=== PATIENT | female | born 1985 | race Caucasian/White ===

== ENCOUNTER 2019-10-22 15:20 | Emergency (ER) | payer OTHER, SELFPAY ==
[2019-10-22 15:21] VITALS: BP 139/102; PULSE 88; RESP 16; TEMP 36.7; O2SAT 100; BMI 35.3
--- NOTE | 2019-10-22 15:42 | ED.DCSUM_ITS ---
History of Present Illness <Kris Hernadez - Last Filed: 10/22/19 16:11> Informant: Patient - Abdominal Pain/Flank Pain Onset: Yesterday Context: Gradual Onset Timing: Intermittent Quality: Cramping Location: RLQ Current Severity: Moderate Maximum Severity: Severe Worsened by: Nothing Relieved by: Remaining Still - Nausea/Vomiting/Emesis GI Symptom: Negative for: Nausea, Vomiting - Diarrhea/Melena/Hematochezia GI Symptom: Negative for: Diarrhea, Melena, Hematochezia Associated Symptoms: Negative for: Dysuria, Frequency, Hematuria, Urgency LMP: this week Narrative: 34-year-old female presents to the emergency department with right lower quadrant abdominal pain. Patient started having menstrual bleeding yesterday with her period. She has developed intermittent right lower quadrant pain. She states it is cramping and sharp in nature. Nothing makes it better or worse. It radiates to her back. She has had no nausea vomiting or diarrhea or urinary symptoms. No fevers. No vaginal discharge. She has a history of ovarian cyst remotely. She is not on Oral BCP at this time. No history of kidney stones or abdominal surgeries. She is eating and drinking normally. Prior similar symptoms: No Recent Illness/Hospitalization: No <Eldon Denson - Last Filed: 10/22/19 17:03> Chief Complaint: Abd Pain Past Medical History <Kris Hernadez - Last Filed: 10/22/19 16:11> Prior records reviewed: Yes Past Medical History: None Surgical History: no surgical history Lives: With Family Smoking Status: Never smoker <Kristina Densonony - Last Filed: 10/22/19 17:03> - Allergies and Home Meds Allergies/Adverse Reactions: Allergies morphine Allergy (Verified 10/22/19 15:22) Other HALLUCINATIONS Primary Care Physician: Manuel Vickers MD [Primary Care Provider] - Review of Systems All systems negative except as indicated General: Denies: Chills, Fever, Malaise Eyes: Denies: Visual changes - bilaterally, Blurred Vision - bilaterally, Diplopia ENT: Denies: Rhinorrhea, Sore throat Cardiovascular: Denies: Chest pain, Palpitations, Heart racing Respiratory: Denies: Dyspnea, Cough, Sputum Gastrointestinal: Reports: Abdominal pain. Denies: Nausea, Vomiting, Constipation, Melena, Hematochezia Genitourinary: Denies: Dysuria, Hematuria, Frequency Musculoskeletal: Denies: Myalgias, Arthralgias, Neck pain, Back pain Skin: Denies: Rash, Abscess, Abrasions, Wounds Neurological: Denies: Headache, Weakness, Parasthesia, Numbness Endocrine: Denies: Polyuria, Polydipsia <Eldon Denson - Last Filed: 10/22/19 17:03> Physical Exam Vital Signs/Narrative: Vital Signs Temp Pulse Resp BP Pulse Ox 10/22/19 15:21 98.1 F 88 16 139/102 H 100 <SatyaKris - Last Filed: 10/22/19 16:11> Vital Signs/Narrative: Vital Signs Temp Pulse Resp BP Pulse Ox 10/22/19 15:21 98.1 F 88 16 139/102 H 100 Inital Vital Signs reviewed: Yes General: Well nourished, Well developed, No Acute Distress Head: Normocephalic, Atraumatic Eyes: Perrl, EOMI ENT: Moist mucous membranes Neck: Supple, Nontender, No lymphadenopathy, No JVD Cardiovascular: Regular rate, Regular rhythm, No murmurs Respiratory: No distress, CTA bilaterally, Chest nontender Abdomen: Soft, Nondistended, Normal bowel sounds, No masses, Tender. 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 Complaining of 1 to 2-day history of very low right lower quadrant pelvic pain. Denies dysuria. No fever. No vomiting or diarrhea. Is having some vaginal spotting. No prior abdominal surgeries. Young female no acute distress. Vital signs are stable. She is afebrile. She does not look septic or toxic. Lungs are clear. Heart regular rhythm no murmur. Abdomen she is tender but is very low right lower quadrant below her belt line. More in the pelvic region. Below and medial to McBurney's point. No peritoneal signs. Nondistended. Positive bowel sounds. No obvious hernia or mass. Right upper left upper and left lower quadrants are all unremarkable. Back nontender. Differential diagnosis would include ovarian cyst versus UTI versus other etiologies. It is in the differential but I do not think this is clinically an appendicitis. <Kris Hernadez - Last Filed: 10/22/19 16:11> - Medical Decision Making CT abdomen pelvis without contrast shows a normal appendix. Did show some very minimal hydronephrosis on the right side with possible recently passed kidney stone. Repeat exam patient feels improved tolerating by mouth discussed with her this is likely from UTI was prescribed Keflex first dose given in ED and we sent a culture. Return precautions given. She was agreeable with plan of care <Eldon Denson - Last Filed: 10/22/19 17:03> ED Disposition <Kris Hernadez - Last Filed: 10/22/19 16:11> <Eldon Denson - Last Filed: 10/22/19 17:03> - Plan for ED Patient: Disposition: Home or Assisted Living Diagnosis: UTI (urinary tract infection) Instructions: ED CYSTITIS Female Adult Prescriptions: Cephalexin [Keflex] 500 mg PO Q12 #14 cap Prescription Printed Referrals: Manuel Vickers MD [Primary Care Provider] -
[2019-10-22 15:47] LABS: Bacteria 0 SEEN /hpf (None Seen); Mucous, Urine 0 SEEN /hpf (<or=2+)
[2019-10-22 15:52] LABS: Color, Urine Yellow (Yellow); Glucose, Dipstick Normal (Normal); Ketone-Dipstick Negative (Negative); Leukocyte Esterase-Dipstick 500 /ul (Negative); Nitrite-Dipstick Negative (Negative); Occult Blood-Urine 250 /ul (Negative); Protein-Dipstick 100 mg/dl (Negative); Urine Bilirubin Dipstick Negative (Negative); Urine Clarity Cloudy (Clear); Urine Urobilinogen Normal (Normal); Urine pH 6.5 (5.0 - 8.0)
[2019-10-22] MEDS: Ketorolac 30 MG/ML Syringe IM (15:53)
[2019-10-22 15:56] LABS: Internal QC Validated? YES +Cl - CLEAR BKGD; Pregnancy, Urine Negative Negative
[2019-10-22 15:58] LABS: Red Blood Cells-Urine 10-25 SEEN /hpf (0-5); Squamous Epithelial Cells - UA 0-5 SEEN /hpf (5-10); White Blood Cells >100 SEEN /hpf (0-5)
--- NOTE | 2019-10-22 16:10 | CT_ITS ---
STUDY: CT ABDOMEN AND PELVIS WITHOUT CONTRAST REASON FOR EXAM: Female, 34 years old. RLQ PAIN, RT FLANK PAIN, URINARY URGENCY, VAG SPOTTING RADIATION DOSAGE (If Supplied By Facility): CTDIvol = ( 13.90 ) mGy, DLP = ( 725.92 ) mGycm TECHNIQUE: Transaxial images were obtained from the dome of the diaphragm to the symphysis pubis without oral contrast, and without intravenous contrast. Sagittal and coronal images were reconstructed. Individualized dose optimization techniques were used for this CT. COMPARISON: None. FINDINGS: The visualized lung bases are unremarkable. The visualized portions of the heart are within normal limits. Normal liver. Normal gallbladder and extrahepatic biliary system. Normal spleen. Normal pancreas. Normal bilateral adrenal glands. Right kidney may have minimal hydronephrosis and hydroureter but no definite renal or ureteral stones are seen. Findings could represent a recently passed stone. Left kidney has moderate cortical scarring. Otherwise negative left kidney. Evaluation of the GI tract is limited by absence of oral contrast. Cannot exclude stomach wall thickening. No dilated loops of bowel or evidence for obstruction. Cannot exclude segmental thickening of the coombs of the small or large bowel. Cannot exclude enteritis or colitis. Moderate diffuse fecal retention. Appendix within normal limits. Normal abdominal aorta. Normal inferior vena cava. Normal retroperitoneum. Normal urinary bladder. Normal visualized uterus. There is a small umbilical hernia containing fat. Normal osseous structures. CT/Abdomen/Pelvis without Cont IMPRESSION: Question of minimal right hydronephrosis and hydroureter but no definite renal or ureteral stones are seen. Possible recently passed stone. Otherwise no definite acute or significant abnormality seen. Electronically Signed: Mckinley Kolb MD at 16:44 EDT , Service support ,
[2019-10-22] MEDS: Cephalexin 250 MG Capsule 500 MG PO (17:23)
== END 2019-10-22 17:28 | disposition home or self-care (01) ==
PROVIDERS: Emergency Provider Physician Assistant Medical; PCP Family Medicine
DX: N39.0 Urinary tract infection, site not specified (principal); Z88.5 Allergy status to narcotic agent
CPT/HCPCS: 74176; 81001; 81025; 87086; 87088; 87186; 96372; 99283

== ENCOUNTER 2020-04-08 06:47 | Emergency (ER) | payer OTHER, SELFPAY ==
[2020-04-08 06:48] VITALS: BP 140/94; PULSE 90; RESP 18; TEMP 36.6; O2SAT 94; BMI 32.3
--- NOTE | 2020-04-08 07:16 | RAD_ITS ---
STUDY: X-RAY - LUMBAR SPINE REASON FOR EXAM: Female, 34 years old. FALL 2 WEEKS AGO, THIS MORNING SEVERE PAIN TO LOWER BACK, PT UNABLE TO LAY ON LEFT SIDE TECHNIQUE: 3 view(s) of the lumbar spine were obtained. COMPARISON: None FINDINGS: Normal lumbar lordosis. There is no substantial scoliosis. There is a normal alignment of the vertebrae. Minimal anterior spondylosis at the L2-L3 and L3-L4 levels. Normal disc space heights. The soft tissue structures are unremarkable. RAD/Lumbar Spine 2 or 3 Views IMPRESSION: Degenerative changes of the spine, as detailed above. Electronically Signed: Yimi Prieto, at 8:11 EDT , Service support ,
[2020-04-08] MEDS: Ketorolac 15 MG/ML Vial IM (07:26)
[2020-04-08] MEDS: HYDROmorphone 0.5 MG/0.5 ML SYRINGE IM (07:27)
--- NOTE | 2020-04-08 07:36 | ED.VISSUMM ---
- ER Visit Summary Date of Service: 04/08/20 Chief Complaint: Back pain History of Present Illness: The patient is a 34 F with low back pain. She hurt her hip on bending 6 weeks ago and then had a mechanical fall about 2 weeks ago. She has been following with a chiropractor, but her pain has been worse. Worse with bending. Ibuprofen is not helping. Denies any history of back problems. Denies any history of back surgery. Denies any urinary symptoms, but she does have a history of kidney stones. Denies any GI symptoms or abdominal pain. Denies any weakness or numbness in her legs. Denies any bowel or bladder changes. Denies any fever or systemic symptoms. Physical Examination: Afebrile and vital signs unremarkable. Patient appears uncomfortable with movements. Abdomen is unremarkable. Right lumbar paraspinal muscles are tender to palpation. Good strength and sensation. Neurovascular intact. Test Results: X-rays of her lumbar spine are pending. Emergency Department Course and Treatment: Patient was treated with Dilaudid and Toradol while awaiting results. She was able to ambulate to the restroom while awaiting results. X-rays were negative. This showed chronic changes. Urinalysis and test were negative. Patient had continued pain and was treated with additional Flexeril and Dilaudid. She had some continued nausea which she attributed to the pain. He received Zofran. On reevaluation, pain is 5 out of 10. We discussed options. I do not believe she needs an emergent MRI. She does not have cauda equina. I do not believe that she has an abscess or epidural hematoma. She has no concerning neurologic findings. I suspect this is myofascial. I advised that sometimes patients will require admission or transfer, but I do not believe she needs that at this point unless she cannot tolerate her pain or function at home. She would like to try to go home. Will prescribe a course of pain medicine and muscle relaxers. Precautions were discussed. Zofran as needed. Follow-up with primary care or return if worse. Treatment Plan: As above Disposition: Discharge Impression: Lumbar back pain This note was generated with [employer] software. It may contain incorrect words, spelling, and punctuation that were not noted in review of the chart prior to signing ED Disposition - Plan for ED Patient: Referrals: Manuel Vickers MD [NON-STAFF] -
[2020-04-08 07:53] LABS: Bacteria 0 SEEN /hpf (None Seen); Mucous, Urine 0 SEEN /hpf (<or=2+); Red Blood Cells-Urine 0 SEEN /hpf (0-5); Squamous Epithelial Cells - UA 0 SEEN /hpf (5-10); White Blood Cells 0 SEEN /hpf (0-5)
[2020-04-08 07:58] LABS: Color, Urine Yellow (Yellow); Glucose, Dipstick Normal (Normal); Ketone-Dipstick Negative (Negative); Leukocyte Esterase-Dipstick Negative /ul (Negative); Nitrite-Dipstick Negative (Negative); Occult Blood-Urine Negative /ul (Negative); Protein-Dipstick Negative (Negative); Urine Bilirubin Dipstick Negative (Negative); Urine Clarity Clear (Clear); Urine Urobilinogen Normal (Normal); Urine pH 6.5 (5.0 - 8.0)
[2020-04-08 08:01] LABS: Internal QC Validated? YES +Cl - CLEAR BKGD; Pregnancy, Urine Negative Negative
[2020-04-08 08:19] VITALS: BP 120/74; PULSE 72; RESP 18
[2020-04-08] MEDS: HYDROmorphone 1 MG/ML Syringe SC (08:57)
[2020-04-08] MEDS: cycloBENZAPRine HCl 10 MG Tablet PO (08:57)
[2020-04-08] MEDS: Ondansetron ODT 4 MG Tablet PO (09:02)
[2020-04-08 09:26] VITALS: BP 100/60; PULSE 69; RESP 16
--- NOTE | 2020-04-08 09:37 | ED.DEP ---
ED Disposition - Plan for ED Patient: Instructions: ED LUMBAR SPRAIN/STRAIN Prescriptions: cycloBENZAPRine HCl [Flexeril] 10 mg PO TID PRN #20 tab PRN Reason: Muscle Spasm Prescription Printed Oxycodone HCl/Acetaminophen [Percocet 5/325] 1 tab PO Q6H PRN PRN 3 Days #12 tab PRN Reason: Pain Prescription Printed Ondansetron [Zofran Odt] 4 mg PO Q8H PRN PRN #10 tab PRN Reason: Nausea Prescription Printed Referrals: Manuel Vickers MD [NON-STAFF] -
== END 2020-04-08 09:45 | disposition home or self-care (01) ==
PROVIDERS: Emergency Provider Emergency Medicine
DX: M54.5 Low back pain (principal); Z87.442 Personal history of urinary calculi; Z91.81 History of falling
CPT/HCPCS: 72100; 81001; 81025; 99283